=== PATIENT | male | born 1965 | race African-American/Black ===

== ENCOUNTER 2018-01-05 07:02 | Emergency (ER) | payer MEDICAID ==
[~2018-01-05] VITALS: Ht 167.6 cm; Wt 95.0 kg
[2018-01-05] MEDS ORDERED: KETOROLAC 60MG/2ML VIAL IM ONE (07:45)
[2018-01-05] MEDS ORDERED: OXYCODONE HCL/ACETAMINOPHEN 5/325MG TABLET PO ONE (07:45)
[2018-01-05 09:07] VITALS: BP 121/63
== END 2018-01-05 09:07 | disposition home or self-care (01) ==
LOC: ER 07:02
DX: M10.9 Gout, unspecified (principal); F12.10 Cannabis abuse, uncomplicated
CPT/HCPCS: 73130; 73630; 96372; 99284; J1885